=== PATIENT | male | born 1940 | race Caucasian/White ===

== ENCOUNTER 2017-03-18 07:30 | Observation (INO) | payer MEDICARE, MEDICAID ==
[~2017-03-18] VITALS: Ht 162.6 cm; Wt 72.6 kg
[~2017-03-18 07:30] MED LIST: HC A30CR RC; LIDO15CR6 TP; LISI-552 PO; MULT-1042 PO; THIA100T12 PO
[2017-03-18 07:50] LABS: BASOPHILS % (AUTO) 1 % (0-10); EOSINOPHILS % (AUTO) 1 % (0-10); LYMPHOCYTES # (AUTO) 0.5 X 10^3 (1.0-4.0); LYMPHOCYTES % (AUTO) 10 % (12-44); MEAN CORPUSCULAR HEMOGLOBIN 35 PG (25-34); MEAN CORPUSCULAR HGB CONC 34 G/DL (32-36); MEAN CORPUSCULAR VOLUME 101 FL (80-99); MEAN PLATELET VOLUME 9.1 FL (7.4-10.4); MONOCYTES # (AUTO) 0.6 X 10^3 (0.0-1.0); MONOCYTES % (AUTO) 13 % (0-12); NEUTROPHILS # (AUTO) 3.8 X 10^3 (1.8-7.8); NEUTROPHILS % (AUTO) 76 % (42-75); PLATELET COUNT 121 10^3/uL (130-400); RED BLOOD COUNT 3.76 10^6/uL (4.35-5.85); RED CELL DISTRIBUTION WIDTH 14.7 % (10.0-14.5)
[2017-03-18 08:10] LABS: ACETAMINOPHEN < 10 UG/ML (10-30); ALANINE AMINOTRANSFERASE 130 U/L (0-55); ALBUMIN 4.2 G/DL (3.2-4.5); ALCOHOL 45 MG/DL (<10); ANION GAP 26 MMOL/L (5-14); ASPARTATE AMINO TRANSFERASE 125 U/L (5-34); BILIRUBIN,TOTAL 1.4 MG/DL (0.1-1.0); BLOOD UREA NITROGEN 12 MG/DL (7-18); BUN/CREATININE RATIO 15; CALCIUM 8.3 MG/DL (8.5-10.1); CARBON DIOXIDE 11 MMOL/L (21-32); CHLORIDE 96 MMOL/L (98-107); CREATININE SERUM 0.81 MG/DL (0.60-1.30); GFR ESTIMATED > 60; GLUCOSE 73 MG/DL (70-105); POTASSIUM 3.9 MMOL/L (3.6-5.0); SODIUM 133 MMOL/L (135-145); TOTAL PROTEIN 6.9 G/DL (6.4-8.2)
--- NOTE | 2017-03-18 08:43 | ED General ---
General Chief Complaint: Dizziness/Syncope Stated Complaint: [facility] Nursing Triage Note: ARRIVED VIA EMS FROM [facility]. PT PASSED OUT AT [facility]. UNKNOWN IF HE HIT HIS HEAD. PT REPORTS NOT EATING FOR 3 DAYS EXCEPT DRINKING WHISKY AND WAS AT [facility] TO PURCHASE ETOH. BACK OF PT SHIRT SOAKED IN OLD BLOOD WITH BLOOD NOTICED ON HIS JEANS. SCATTERED BLOOD NOTICED ON HIS HEAD AND RIGHT EAR BUT NO ODVIOUS SIGNS OF BLEEDING HIMSELF. PT APPEARS TO HAVE SCABIES. Nursing Sepsis Screen: No Definite Risk Source of Information: Patient, EMS Notes Reviewed History of Present Illness Time Seen by Provider: 08:40 Initial Comments The patient is a 76-year-old white male who is a known alcoholic. He reported to the EMS that he had not eaten for the past 3 days but had been drinking whiskey. At About 0600 hours he gone to [facility] to buy more beer. He then was observed to be behaving oddly and ultimately slumped to the floor. He was observed to have blood upon his person but without obvious evidence of bleeding. The ambulance was summoned and he was brought here. On a recent visit here as an inpatient he was discovered to have scabies and bedbugs. Preliminary nursing scan today suggests this is still treated. Timing/Duration: 3-4 Days Allergies and Home Medications Allergies Coded Allergies: No Known Drug Allergies (Unverified , 09/05/16) Home Medications Lisinopril 20 Mg Tablet, 20 MG PO DAILY, #30 Prescribed by: HOPE RICHARDSON on 09/08/16 1324 Multivit-Min/Iron Fum/Folic AC 1 Each Tablet, 1 EACH PO DAILY for 30 Days Prescribed by: HOPE RICHARDSON on 09/08/16 1324 Thiamine HCl 100 Mg Tablet, 100 MG PO DAILY, #30 Prescribed by: HOPE RICHARDSON on 09/08/16 1324 Constitutional: see HPI EENTM: no symptoms reported Respiratory: no symptoms reported Cardiovascular: no symptoms reported Gastrointestinal: no symptoms reported Genitourinary: no symptoms reported Musculoskeletal: no symptoms reported Skin: no symptoms reported Psychiatric/Neurological: No Symptoms Reported Hematologic/Lymphatic: No Symptoms Reported Immunological/Allergic: no symptoms reported Past Blcfqpg-Ljzudf-Hqawon Hx Patient Social History Alcohol Use: Regular Use Recreational Drug Use: No Smoking Status: Current Everyday Smoker Type Used: Cigarettes Recent Foreign Travel: No Contact w/Someone Who Travel: No Recent Infectious Disease Expo: No Recent Hopitalizations: No Immunizations Up To Date Tetanus Booster (TDap): Unknown Seasonal Allergies Seasonal Allergies: No Surgeries HX Surgeries: Yes Respiratory Hx Respiratory Disorders: No Cardiovascular Hx Cardiac Disorders: Yes Cardiac Disorders: Hypertension Neurological Hx Neurological Disorders: No Reproductive System Hx Reproductive Disorders: No Genitourinary Hx Genitourinary Disorders: No Gastrointestinal Hx Gastrointestinal Disorders: Yes Gastrointestinal Disorders: Gastroesophageal Reflux, Hemorrhoids Musculoskeletal Hx Musculoskeletal Disorders: No Endocrine Hx Endocrine Disorders: No HEENT HX ENT Disorders: No Cancer Hx Cancer: No Psychosocial Hx Psychiatric Problems: No Integumentary HX Skin/Integumentary Disorder: Yes (current scabies/bed bugs ) Blood Transfusions Hx Blood Disorders: No Family Medical History Significant Family History: No Pertinent Family Hx Family Medial History: Patient reports no known family medical history. Physical Exam Vital Signs Vital Sign - Last 12Hours 03/18/17 03/18/17 07:30 07:40 Temp 98.0 Pulse 69 Resp 16 B/P (MAP) 168/92 Pulse Ox 94 O2 Delivery Nasal Cannula O2 Flow Rate 2.00 Capillary Refill : Less Than 3 Seconds General Appearance: No Apparent Distress Eyes: Bilateral Eye Normal Inspection HEENT: Normal ENT Inspection, Other (there is old blood caked at the external os of the right ear and the earlobe) Neck: Full Range of Motion, Normal Inspection, Non Tender, Supple, Carotid Bruit Respiratory: Chest Non Tender, Lungs Clear, Normal Breath Sounds, No Accessory Muscle Use, No Respiratory Distress Cardiovascular: Regular Rate, Rhythm, No Edema, No Gallop, No JVD, No Murmur, Normal Peripheral Pulses Gastrointestinal: Normal Bowel Sounds, No Organomegaly, No Pulsatile Mass, Non Tender, Soft Back: Normal Inspection Extremity: Normal Capillary Refill, Normal Inspection, Normal Range of Motion, Non Tender, No Calf Tenderness, No Pedal Edema Neurologic/Psychiatric: Alert, Oriented x3, No Motor/Sensory Deficits, Normal Mood/Affect Skin: Normal Color Comments Small flecks of blood clot are noted on the scalp, the right earlobe and external ear, scattered across the back, and the seat of the underwear appears soaked. This is old and dry. There is no evidence of hemorrhoid or rectal bleeding Progress/Results/Core Measures Results/Orders Lab Results Laboratory Tests Test 03/18/17 07:44 03/18/17 08:46 03/18/17 10:29 Range/Units White Blood Count 5.0 4.3-11.0 10^3/uL Red Blood Count 3.76 L 4.35-5.85 10^6/uL Hemoglobin 13.0 L 13.3-17.7 G/DL Hematocrit 38 L 40-54 % Mean Corpuscular Volume 101 H 80-99 FL Mean Corpuscular Hemoglobin 35 H 25-34 PG Mean Corpuscular Hemoglobin Concent 34 32-36 G/DL Red Cell Distribution Width 14.7 H 10.0-14.5 % Platelet Count 121 L 130-400 10^3/uL Mean Platelet Volume 9.1 7.4-10.4 FL Neutrophils (%) (Auto) 76 H 42-75 % Lymphocytes (%) (Auto) 10 L 12-44 % Monocytes (%) (Auto) 13 H 0-12 % Eosinophils (%) (Auto) 1 0-10 % Basophils (%) (Auto) 1 0-10 % Neutrophils # (Auto) 3.8 1.8-7.8 X 10^3 Lymphocytes # (Auto) 0.5 L 1.0-4.0 X 10^3 Monocytes # (Auto) 0.6 0.0-1.0 X 10^3 Eosinophils # (Auto) 0.0 0.0-0.3 10^3/uL Basophils # (Auto) 0.0 0.0-0.1 10^3/uL Prothrombin Time 15.0 H 12.2-14.7 SEC INR Comment 1.2 0.8-1.4 Sodium Level 133 L 135-145 MMOL/L Potassium Level 3.9 3.6-5.0 MMOL/L Chloride Level 96 L 98-107 MMOL/L Carbon Dioxide Level 11 L 21-32 MMOL/L Anion Gap 26 H 5-14 MMOL/L Blood Urea Nitrogen 12 7-18 MG/DL Creatinine 0.81 0.60-1.30 MG/DL Estimat Glomerular Filtration Rate > 60 BUN/Creatinine Ratio 15 Glucose Level 73 70-105 MG/DL Calcium Level 8.3 L 8.5-10.1 MG/DL Total Bilirubin 1.4 H 0.1-1.0 MG/DL Aspartate Amino Transf (AST/SGOT) 125 H 5-34 U/L Alanine Aminotransferase (ALT/SGPT) 130 H 0-55 U/L Alkaline Phosphatase 69 40-136 U/L Total Protein 6.9 6.4-8.2 G/DL Albumin 4.2 3.2-4.5 G/DL Acetaminophen Level < 10 L 10-30 UG/ML Serum Alcohol 45 H <10 MG/DL Urine Opiates Screen NEGATIVE NEGATIVE Urine Oxycodone Screen NEGATIVE NEGATIVE Urine Methadone Screen NEGATIVE NEGATIVE Urine Propoxyphene Screen NEGATIVE NEGATIVE Urine Barbiturates Screen NEGATIVE NEGATIVE Ur Tricyclic Antidepressants Screen NEGATIVE NEGATIVE Urine Phencyclidine Screen NEGATIVE NEGATIVE Urine Amphetamines Screen NEGATIVE NEGATIVE Urine Methamphetamines Screen NEGATIVE NEGATIVE Urine Benzodiazepines Screen NEGATIVE NEGATIVE Urine Cocaine Screen NEGATIVE NEGATIVE Urine Cannabinoids Screen NEGATIVE NEGATIVE Ammonia 31 11-32 UMOL/L My Orders Orders - BINU SWEET MD Acetaminophen (03/18/17 07:31) Alcohol (03/18/17 07:31) Cbc With Automated Diff (03/18/17 07:31) Comprehensive Metabolic Panel (03/18/17 07:31) Drug Screen Stat (Urine) (03/18/17 07:31) Ekg Tracing (03/18/17 08:04) Ammonia (03/18/17 09:46) Protime With Inr (03/18/17 09:46) General/Regular (03/18/17 Breakfast) Vital Signs/I&O Vital Sign - Last 12Hours 03/18/17 03/18/17 07:30 07:40 Temp 98.0 Pulse 69 Resp 16 B/P (MAP) 168/92 Pulse Ox 94 89 O2 Delivery Nasal Cannula O2 Flow Rate 2.00 Blood Pressure Mean: 117 Departure Communication Progress Notes Hemoglobin is noted to be 13. This is in the same range as his previous encounters. Pro time/INR is 1.2. Impression Impression: Primary Impression: alcohol abuse Additional Impression: fall at [facility] Disposition: 01 HOME, SELF-CARE Condition: Stable/Unchanged Departure-Patient Inst. Decision time for Depature: 11:18 Referrals: ROLANDO ORELLANA DO (PCP/Family) Primary Care Physician Patient Instructions: Syncope (Fainting) (DC) Add. Discharge Instructions: All discharge instructions reviewed with patient and/or family. Voiced understanding. See Dr. Orellana next week. Rest and avoid alcohol intake BINU SWEET MD March 18, 2017 08:43
[2017-03-18 10:01] LABS: INR 1.2 (0.8-1.4)
[2017-03-18 15:00] VITALS: BP 168/69
[2017-03-18] MEDS ORDERED: THIAMINE 100 MG/ML 2 ML (VITAMIN B-1) VIAL IV NR (15:00)
[2017-03-18] MEDS ORDERED: ONDANSETRON 4 MG/2 ML (SDV) Z0FRAN IV PRN (15:00)
[2017-03-18] MEDS ORDERED: CATHETER FLUSH 10 ML SYR IV PRN (15:00)
[2017-03-18] MEDS ORDERED: LORazepam INJ 2 MG/ML (ATIVAN) VIAL IV PRN (15:00)
[2017-03-18] MEDS ORDERED: FOLIC ACID 5MG/ML 10 ML IV NR (15:00)
[2017-03-18] MEDS ORDERED: RT-ALBUTEROL/IPRATROPIUM 3 ML (DUONEB) VIAL INH PRN (15:30)
[2017-03-18] MEDS ORDERED: IBUPROFEN TABLET 200 MG TAB PO PRN (19:30)
[2017-03-18 19:48] VITALS: BP 152/79
[2017-03-18] MEDS: LORazepam 1 MG (ATIVAN) TAB PO SCH (19:53)
[2017-03-18] MEDS: CATHETER FLUSH 10 ML SYR IV SCH (19:54)
[2017-03-19] VITALS: BP 149/79
[2017-03-19 03:49] VITALS: BP 157/87
[2017-03-19 05:27] LABS: BASOPHILS % (AUTO) 0 % (0-10); EOSINOPHILS % (AUTO) 1 % (0-10); LYMPHOCYTES # (AUTO) 0.3 X 10^3 (1.0-4.0); LYMPHOCYTES % (AUTO) 6 % (12-44); MEAN CORPUSCULAR HEMOGLOBIN 35 PG (25-34); MEAN CORPUSCULAR HGB CONC 35 G/DL (32-36); MEAN CORPUSCULAR VOLUME 99 FL (80-99); MEAN PLATELET VOLUME 9.3 FL (7.4-10.4); MONOCYTES % (AUTO) 19 % (0-12); NEUTROPHILS # (AUTO) 3.9 X 10^3 (1.8-7.8); NEUTROPHILS % (AUTO) 74 % (42-75); PLATELET COUNT 110 10^3/uL (130-400); RED BLOOD COUNT 3.62 10^6/uL (4.35-5.85); RED CELL DISTRIBUTION WIDTH 14.9 % (10.0-14.5); WHITE BLOOD COUNT 5.2 10^3/uL (4.3-11.0)
[2017-03-19 06:01] LABS: ANISOCYTOSIS SLIGHT; BAND NEUTROPHILS 0 %; BASOPHILS % (MANUAL) 0 %; EOSINOPHILS % (MANUAL) 0 %; LYMPHOCYTES % (MANUAL) 8 %; NEUTROPHILS % (MANUAL) 81 %; ROULEAUX SLIGHT
[2017-03-19] MEDS: CATHETER FLUSH 10 ML SYR IV SCH (06:22)
[2017-03-19 08:00] VITALS: BP 129/76
[2017-03-19] MEDS: LORazepam 1 MG (ATIVAN) TAB PO SCH ×2 (10:04→13:30)
--- NOTE | 2017-03-19 10:22 | Short Stay Summary ---
History of Present Illness History of Present Illness Reason for visit/HPI 76 yo M admitted for acute alcoholism. patient fell at [facility] in [facility]. He was there to purchase more alcohol. Patient has frequent visits to the hospital usually due to alcohol intoxication patient reports he hasn't a 3 days and typically just consumes alcohol. Patient was unstable on his feet on admission but as his alcohol levels (45 on admission) decreased he became more stable on his feet. He was able to ambulate without any assistance as well as use the restroom. Pt ate his meals that he ordered. Date of Admission March 18, 2017 at 13:28 Date of Discharge Mar 19 2017 Attending Physician Tyrone Bernal DO Admitting Physician Nate Hutchinson MD Consult Allergies and Home Medications Allergies Coded Allergies: No Known Drug Allergies (Unverified , 09/05/16) Home Medications Lisinopril 20 Mg Tablet, 20 MG PO DAILY, #30 Prescribed by: HOPE RICHARDSON on 09/08/16 1324 Multivit-Min/Iron Fum/Folic AC 1 Each Tablet, 1 EACH PO DAILY for 30 Days Prescribed by: HOPE RICHARDSON on 09/08/16 1324 Thiamine HCl 100 Mg Tablet, 100 MG PO DAILY, #30 Prescribed by: HOPE RICHARDSON on 09/08/16 1324 Past Ggsicln-Cnycjb-Fkpyhe Hx Patient Social History Alcohol Use: Regular Use Recreational Drug Use: No Smoking Status: Current Everyday Smoker Type Used: Cigarettes Physical Abuse Screen: No Sexual Abuse: No Recent Foreign Travel: No Contact w/other who traveled: No Recent Hopitalizations: Yes Recent Infectious Disease Expo: No Immunizations Up To Date Tetanus Booster (TDap): Unknown Seasonal Allergies Seasonal Allergies: No Surgeries HX Surgeries: Yes Respiratory Hx Respiratory Disorders: No Cardiovascular Hx Cardiovascular Disorders: Yes Cardiac Disorders: Hypertension Neurological Hx Neurological Disorders: No Reproductive System Hx Reproductive Disorders: No Genitourinary Hx Genitourinary Disorders: No Gastrointestinal Hx Gastrointestinal Disorders: Yes Gastrointestinal Disorders: Gastroesophageal Reflux, Hemorrhoids Musculoskeletal Hx Musculoskeletal Disorders: No Endocrine Hx Endocrine Disorders: No HEENT HX ENT Disorders: No Cancer Hx Cancer: No Psychosocial Hx Psychiatric Problems: No Integumentary HX Skin/Integumentary Disorder: Yes (current scabies/bed bugs ) Blood Transfusions Hx Blood Disorders: No Family Medical History Significant Family History: No Pertinent Family Hx Family Hx: Patient reports no known family medical history. Constitutional: No chills, No diaphoresis EENTM: No blurred vision, No double vision, No ear pain Respiratory: No cough, No dyspnea on exertion Cardiovascular: No chest pain Gastrointestinal: No abdominal pain, No constipation, No diarrhea Genitourinary: No dysuria, No frequency Musculoskeletal: No back pain, No joint pain Skin: pruritus, rash Psychiatric/Neurological: Denies Anxiety, Denies Depressed, Denies Headache, Weakness Physical Exam Vital Signs Vital Sign - Last 12Hours 03/18/17 03/18/17 07:30 07:40 Temp 98.0 Pulse 69 Resp 16 B/P (MAP) 168/92 Pulse Ox 94 O2 Delivery Nasal Cannula O2 Flow Rate 2.00 Capillary Refill : Less Than 3 Seconds General Appearance: No Apparent Distress, Thin HEENT: PERRL/EOMI, Other (bilateral black eyes) Neck: Full Range of Motion Respiratory: Chest Non Tender, Lungs Clear, Normal Breath Sounds, No Accessory Muscle Use, No Respiratory Distress Cardiovascular: Regular Rate, Rhythm, No Edema Gastrointestinal: Normal Bowel Sounds, Non Tender, Soft Rectal: Deferred Back: Normal Inspection, No CVA Tenderness Extremity: Non Tender, No Calf Tenderness Neurologic/Psychiatric: Alert, Oriented x3, No Motor/Sensory Deficits Skin: Other (excoriations on buttocks, legs) Clinical Quality Measures DVT/VTE Risk/Contraindication: Risk Factor Score Per Nursin RFS Level Per Nursing on Admit: 3=High Short Stay Diagnosis Discharge Diagnosis-Short Stay Admission Diagnosis: acute alcohol intoxication weakness fall secondary to etoh intoxication elevated liver enzymes Final Discharge Diagnosis: acute alcohol intoxication alcohol abuse weakness fall secondary to etoh intoxication elevated liver enzymes Conclusion Labs Laboratory Tests 03/18/17 10:29: Ammonia 31 03/19/17 05:09: White Blood Count 5.2, Red Blood Count 3.62L, Hemoglobin 12.6L, Hematocrit 36L, Mean Corpuscular Volume 99, Mean Corpuscular Hemoglobin 35H, Mean Corpuscular Hemoglobin Concent 35, Red Cell Distribution Width 14.9H, Platelet Count 110L, Mean Platelet Volume 9.3, Neutrophils (%) (Auto) 74, Lymphocytes (%) (Auto) 6L, Monocytes (%) (Auto) 19H, Eosinophils (%) (Auto) 1, Basophils (%) (Auto) 0, Neutrophils # (Auto) 3.9, Lymphocytes # (Auto) 0.3L, Monocytes # (Auto) 1.0, Eosinophils # (Auto) 0.0, Basophils # (Auto) 0.0, Neutrophils % (Manual) 81, Lymphocytes % (Manual) 8, Monocytes % (Manual) 11, Eosinophils % (Manual) 0, Basophils % (Manual) 0, Band Neutrophils 0, Anisocytosis SLIGHT, Rouleau SLIGHT Conclusion/Plan 76-year-old male admitted for overnight observation status post fall on March 18, 2017 at [facility]. No noticed injuries, physical exam is benign, besides blood all over his hands and buttocks and being unkempt. After patient was cleaned up there were excoriations noted on his buttocks no active bleeding noted. patient did have a temperature of 100.2 Fahrenheit he was given a one- time dose of Ativan on day of admission with good results. No noticed withdrawal symptoms. Patient denies any history of delirium tremens. Patient denies any seizures. patient refused to be discharged to home because he says he is too weak to go home. He wants one more day in the hospital to regain his strength. Patient was informed the hospital is not a place to regain his strength that he needs to get up and walk around at home. patient then proceeded to say he does not have any food at home and he does not have enough money to buy food. Hospital staff notes the patient did have money as well as had a vision card. Encouraged patient to sober up and stop drinking alcohol. Patient's brother was very cooperative and came up and picked patient up from the hospital and took him home. Patient will have an office visit with Dr. Bernal his PCP on March 21, 2017 to further discuss possible placement in a nursing facility. NATE HUTCHINSON MD March 19, 2017 10:21
--- NOTE | 2017-03-19 10:27 | Discharge Inst-Simple/Standard ---
Discharge Inst-Standard Patient Instructions/Follow Up Plan of Care/Instructions/FU: Patient needs to eat 3 meals a day stop his alcohol use Follow up with Dr. Bernal Cris 03/21/17 Activity as Tolerated: Yes Discharge Diet: Regular Diet Return to The Hospital For: new concerns ANDREA HUTCHINSON MD March 19, 2017 10:27
[2017-03-19 12:00] VITALS: BP 158/98
== END 2017-03-19 10:25 | disposition home or self-care (01) ==
LOC: EDUNIT# 07:30 → ER 07:31 → UNDOADMOB 13:28 → 4TH 13:28 → UNDODISOB 03-19 14:00
PROVIDERS: ADMIT Family Medicine; ATTEND Family Medicine
DX: F10.220 Alcohol dependence with intoxication, uncomplicated (principal); R53.1 Weakness; R74.8 Abnormal levels of other serum enzymes; I10 Essential (primary) hypertension; K21.9 Gastro-esophageal reflux disease without esophagitis; W19.XXXA Unspecified fall, initial encounter; Y92.512 Supermarket, store or market as the place of occurrence of the external cause
CPT/HCPCS: 36415; 80053; 80306; 80320; 80329; 82140; 85007; 85025; 85027; 85610; 93005; 94760; G0378

== ENCOUNTER 2018-02-23 19:19 | Inpatient (IN) | payer MEDICARE, MEDICAID ==
[~2018-02-23] VITALS: Ht 170.2 cm; Wt 71.7 kg
[2018-02-23] VITALS (9 sets, daily range): BP systolic 136–165; BP diastolic 76–86
--- NOTE | 2018-02-23 19:26 | ED General ---
General Stated Complaint: FALL Source of Information: Patient Exam Limitations: No Limitations History of Present Illness Date Seen by Provider: February 23, 2018 Time Seen by Provider: 19:23 Initial Comments To ER per EMS from home at [facility] where he lives by himself. He was formerly admitted to [facility] as he was unable to take care of himself and he is an alcoholic, but ultimately was his own guardian and left on his own accord. He's been falling more than usual lately and fell earlier today. EMS arrived on scene earlier today, helped him up and he refused transport. He then fell again this evening and one of the next-door neighbor's in his apartment complex called EMS to help get him up off the floor. He was then transported to ER per his brother's request who reportedly has guardianship of him. Brother has been talking to the operations administrator at [facility] and apparently [facility] has agreed to take him back possibly Monday. Patient states he drinks "a lot" every day which he defines as two tall boys of beer daily mixed with about a half pint of whiskey daily. Timing/Duration: 1-2 Days, Getting Worse, Intermittent Severity: Moderate Associated Systoms: Weakness Allergies and Home Medications Allergies Coded Allergies: No Known Drug Allergies (Unverified , 09/05/16) Home Medications No Active Prescriptions or Reported Meds Patient Home Medication List Home Medication List Reviewed: Yes Review of Systems Constitutional: see HPI EENTM: see HPI Respiratory: no symptoms reported Cardiovascular: no symptoms reported Genitourinary: no symptoms reported Musculoskeletal: see HPI, muscle weakness Skin: no symptoms reported Psychiatric/Neurological: No Symptoms Reported Hematologic/Lymphatic: No Symptoms Reported Immunological/Allergic: no symptoms reported Past Lkgymxg-Gucqpv-Vheiip Hx Patient Social History Alcohol Beverage of Choice: Beer, Whiskey Type Used: Cigarettes Recent Hopitalizations: No Immunizations Up To Date Tetanus Booster (TDap): Unknown Seasonal Allergies Seasonal Allergies: No Past Medical History Surgeries: Yes (PT UNABLE TO IDENTIFY ) Respiratory: No Cardiac: Yes Hypertension Neurological: No Reproductive Disorders: No Genitourinary: No Gastrointestinal: Yes Gastroesophageal Reflux, Hemorrhoids Musculoskeletal: No Endocrine: No HEENT: No Cancer: No Psychosocial: No Integumentary: Yes (scabies ) Blood Disorders: No Family Medical History Patient reports no known family medical history. No Pertinent Family Hx Physical Exam Vital Signs Vital Signs - First Documented 02/23/18 19:20 Temp 97.2 Pulse 69 Resp 18 B/P (MAP) 137/84 (101) Pulse Ox 95 O2 Delivery Room Air Capillary Refill : General Appearance: No Apparent Distress, WD/WN, Chronically ill, Other (He is alert, oriented to person and place. He is pleasant at this time, but anxious) Eyes: Bilateral Eye Normal Inspection, Bilateral Eye PERRL HEENT: PERRL/EOMI, TMs Normal Neck: Full Range of Motion, Normal Inspection Respiratory: No Accessory Muscle Use, No Respiratory Distress Cardiovascular: Regular Rate, Rhythm, Normal Peripheral Pulses Gastrointestinal: Normal Bowel Sounds, Non Tender, Soft Extremity: Normal Capillary Refill, Normal Inspection Neurologic/Psychiatric: Alert, No Motor/Sensory Deficits Skin: Normal Color, Warm/Dry Progress/Results/Core Measures Suspected Sepsis SIRS Temperature: Pulse: Respiratory Rate: Laboratory Tests 02/23/18 19:20: White Blood Count 3.9L Blood Pressure / Mean: Laboratory Tests 02/23/18 19:20: Creatinine 0.73, INR Comment 1.0, Platelet Count 96L, Total Bilirubin 1.3H Results/Orders Lab Results Laboratory Tests Test 02/23/18 19:20 Range/Units White Blood Count 3.9 L 4.3-11.0 10^3/uL Red Blood Count 3.79 L 4.35-5.85 10^6/uL Hemoglobin 14.0 13.3-17.7 G/DL Hematocrit 39 L 40-54 % Mean Corpuscular Volume 102 H 80-99 FL Mean Corpuscular Hemoglobin 37 H 25-34 PG Mean Corpuscular Hemoglobin Concent 36 32-36 G/DL Red Cell Distribution Width 14.6 H 10.0-14.5 % Platelet Count 96 L 130-400 10^3/uL Mean Platelet Volume 9.0 7.4-10.4 FL Neutrophils (%) (Auto) 58 42-75 % Lymphocytes (%) (Auto) 20 12-44 % Monocytes (%) (Auto) 17 H 0-12 % Eosinophils (%) (Auto) 4 0-10 % Basophils (%) (Auto) 1 0-10 % Neutrophils # (Auto) 2.3 1.8-7.8 X 10^3 Lymphocytes # (Auto) 0.8 L 1.0-4.0 X 10^3 Monocytes # (Auto) 0.7 0.0-1.0 X 10^3 Eosinophils # (Auto) 0.2 0.0-0.3 10^3/uL Basophils # (Auto) 0.0 0.0-0.1 10^3/uL Prothrombin Time 13.7 12.2-14.7 SEC INR Comment 1.0 0.8-1.4 Activated Partial Thromboplast Time 29 24-35 SEC Sodium Level 137 135-145 MMOL/L Potassium Level 3.7 3.6-5.0 MMOL/L Chloride Level 97 L 98-107 MMOL/L Carbon Dioxide Level 19 L 21-32 MMOL/L Anion Gap 21 H 5-14 MMOL/L Blood Urea Nitrogen 9 7-18 MG/DL Creatinine 0.73 0.60-1.30 MG/DL Estimat Glomerular Filtration Rate > 60 BUN/Creatinine Ratio 12 Glucose Level 91 70-105 MG/DL Calcium Level 8.7 8.5-10.1 MG/DL Total Bilirubin 1.3 H 0.1-1.0 MG/DL Aspartate Amino Transf (AST/SGOT) 92 H 5-34 U/L Alanine Aminotransferase (ALT/SGPT) 65 H 0-55 U/L Alkaline Phosphatase 69 40-136 U/L Total Protein 7.2 6.4-8.2 GM/DL Albumin 4.5 3.2-4.5 GM/DL Salicylates Level < 5.0 L 5.0-20.0 MG/DL Serum Alcohol 281 H <10 MG/DL My Orders Orders - YSABEL PAULINO APRN Cbc With Automated Diff (02/23/18 19:21) Comprehensive Metabolic Panel (02/23/18 19:21) Alcohol (02/23/18 19:21) Salicylate (02/23/18 19:21) Ekg Tracing (02/23/18 19:21) Chest 1 View, Ap/Pa Only (02/23/18 19:21) Ct Head/Cervical Spine Wo (02/23/18 19:21) Eu-Shhzajg-Uyqabi (Order) (02/23/18 19:21) Ua Culture If Indicated (02/23/18 19:29) Protime With Inr (02/23/18 19:33) Partial Thromboplastin Time (02/23/18 19:33) General/Regular (02/23/18 Dinner) Vital Signs/I&O 02/23/18 19:20 Temp 97.2 Pulse 69 Resp 18 B/P (MAP) 137/84 (101) Pulse Ox 95 O2 Delivery Room Air Capillary Refill : Diagnostic Imaging Diagonstic Imaging: CT Comments NAME: LARRY SANON [facility] REC#: [id number] PT STATUS: REG ER : 1940 PHYSICIAN: YSABEL PAULINO APRN ADMIT DATE: 02/23/18/ER Draft Date of Exam:02/23/18 CT HEAD/CERVICAL SPINE WO PROCEDURE: CT head and CT cervical spine without contrast. TECHNIQUE: Multiple contiguous axial images were obtained through the brain and cervical spine without the use of intravenous contrast. Sagittal and coronal reformations through the cervical spine were then performed. INDICATION: Fall. COMPARISON: 03/30/2017. CT HEAD: No intracranial hemorrhage, hydrocephalus, edema, mass, mass effect or interval change is found. No calvarial fracture or deformity. No evidence for elevated intracranial pressures. No hemo-sinus. CT CERVICAL SPINE: Degenerative changes involve discs, endplates, uncovertebral joints and facets throughout the cervical spine on a chronic degenerative basis, stable from prior. No high-grade canal stenosis. Vertebral statures are within normal limits. No fracture or paravertebral hematoma. Left greater than right carotid atherosclerotic vascular calcifications, chronic. Visualized pulmonary apices nonacute. IMPRESSION: 1. CT head: Stable head CT with no hemorrhage, fracture, deformity or acute pathology. 2. CT cervical spine: Chronic stable degenerative and atherosclerotic changes with no fracture or traumatic malalignment. Dictated on workstation # [id number] Dict: 02/23/182010 Trans: 02/23/182019 [facility] [id number] Interpreted by: DOTTIE CHUNG Electronically signed by: NAME: LARRY SANON REC#: [id number] PT STATUS: REG ER : 1940 PHYSICIAN: YSABEL PAULINO APRN ADMIT DATE: 02/23/18/ER Draft Date of Exam:02/23/18 CHEST 1 VIEW, AP/PA ONLY INDICATION: Fall. EXAMINATION: Single view of the chest was obtained. FINDINGS: The lungs are clear. The heart and vessels are normal. No effusion or pneumothorax. Calcified left lower lung nodule stable from exam of 09/05/2016, presumed granuloma. No new nodule. No failure, effusion or pneumothorax. Chronic air trapping stable. There are chronic degenerative changes involving right greater than left shoulders. IMPRESSION: Stable chronic findings. Dictated on workstation # [id number] Dict: 02/23/182012 Trans: 02/23/182021 [facility] [id number] Interpreted by: DOTTIE CHUNG Electronically signed by: Departure Communication (Admissions) Time/Spoke to Admitting Phy: 20:[address] Valdivia on-call for [facility] hospitalist. Patient is very anxious, unable to take care of himself at home. He's been falling multiple times daily over the past few days and with the anxiety is in early alcohol withdrawal. Impression Primary Impression: Alcohol withdrawal Additional Impressions: Frequent falls Generalized weakness Physical deconditioning Disposition: ADMITTED INPATIENT Condition: Stable Admissions Decision to Admit Reason: Admit from ER (General) Decision to Admit/Date: February 23, 2018 Time/Decision to Admit Time: 20:43 Departure-Patient Inst. Referrals: ROLANDO ORELLANA DO (PCP/Family) Primary Care Physician Scripts No Active Prescriptions or Reported Meds YSABEL PAULINO APRN February 23, 2018 19:26
[2018-02-23 19:29] LABS: BASOPHILS % (AUTO) 1 % (0-10); EOSINOPHILS # (AUTO) 0.2 10^3/uL (0.0-0.3); EOSINOPHILS % (AUTO) 4 % (0-10); HEMATOCRIT 39 % (40-54); LYMPHOCYTES # (AUTO) 0.8 X 10^3 (1.0-4.0); LYMPHOCYTES % (AUTO) 20 % (12-44); MEAN CORPUSCULAR HEMOGLOBIN 37 PG (25-34); MEAN CORPUSCULAR HGB CONC 36 G/DL (32-36); MEAN CORPUSCULAR VOLUME 102 FL (80-99); MONOCYTES # (AUTO) 0.7 X 10^3 (0.0-1.0); MONOCYTES % (AUTO) 17 % (0-12); NEUTROPHILS # (AUTO) 2.3 X 10^3 (1.8-7.8); NEUTROPHILS % (AUTO) 58 % (42-75); PLATELET COUNT 96 10^3/uL (130-400); RED BLOOD COUNT 3.79 10^6/uL (4.35-5.85); RED CELL DISTRIBUTION WIDTH 14.6 % (10.0-14.5); WHITE BLOOD COUNT 3.9 10^3/uL (4.3-11.0)
[2018-02-23 19:42] LABS: PROTHROMBIN TIME PATIENT 13.7 SEC (12.2-14.7)
[2018-02-23 19:50] LABS: ALANINE AMINOTRANSFERASE 65 U/L (0-55); ALBUMIN 4.5 GM/DL (3.2-4.5); ALKALINE PHOSPHATASE 69 U/L (40-136); BILIRUBIN,TOTAL 1.3 MG/DL (0.1-1.0); BUN/CREATININE RATIO 12; CALCIUM 8.7 MG/DL (8.5-10.1); CARBON DIOXIDE 19 MMOL/L (21-32); CHLORIDE 97 MMOL/L (98-107); CREATININE SERUM 0.73 MG/DL (0.60-1.30); GFR ESTIMATED > 60; GLUCOSE 91 MG/DL (70-105); POTASSIUM 3.7 MMOL/L (3.6-5.0); SALICYLATE < 5.0 MG/DL (5.0-20.0); SODIUM 137 MMOL/L (135-145); TOTAL PROTEIN 7.2 GM/DL (6.4-8.2)
--- NOTE | 2018-02-23 20:21 | Diagnostic Imaging Report ---
PROCEDURE: CT head and CT cervical spine without contrast. TECHNIQUE: Multiple contiguous axial images were obtained through the brain and cervical spine without the use of intravenous contrast. Sagittal and coronal reformations through the cervical spine were then performed. INDICATION: Fall. COMPARISON: 03/30/2017. CT HEAD: No intracranial hemorrhage, hydrocephalus, edema, mass, mass effect or interval change is found. No calvarial fracture or deformity. No evidence for elevated intracranial pressures. No hemo-sinus. CT CERVICAL SPINE: Degenerative changes involve discs, endplates, uncovertebral joints and facets throughout the cervical spine on a chronic degenerative basis, stable from prior. No high-grade canal stenosis. Vertebral statures are within normal limits. No fracture or paravertebral hematoma. Left greater than right carotid atherosclerotic vascular calcifications, chronic. Visualized pulmonary apices nonacute. IMPRESSION: 1. CT head: Stable head CT with no hemorrhage, fracture, deformity or acute pathology. 2. CT cervical spine: Chronic stable degenerative and atherosclerotic changes with no fracture or traumatic malalignment. Dictated by: Dictated on workstation # [id number]
--- NOTE | 2018-02-23 20:22 | Diagnostic Imaging Report ---
INDICATION: Fall. EXAMINATION: Single view of the chest was obtained. FINDINGS: The lungs are clear. The heart and vessels are normal. No effusion or pneumothorax. Calcified left lower lung nodule stable from exam of 09/05/2016, presumed granuloma. No new nodule. No failure, effusion or pneumothorax. Chronic air trapping stable. There are chronic degenerative changes involving right greater than left shoulders. IMPRESSION: Stable chronic findings. Dictated by: Dictated on workstation # [id number]
[2018-02-23 20:48] LABS: BILIRUBIN,URINE NEGATIVE (NEGATIVE); CLARITY,URINE CLEAR; COLOR,URINE YELLOW; GLUCOSE, URINE (UA) NEGATIVE (NEGATIVE); KETONES,URINE 3+ (NEGATIVE); LEUKOCYTE ESTERASE ,URINE NEGATIVE (NEGATIVE); NITRITE,URINE NEGATIVE (NEGATIVE); PH,URINE 5 (5-9); PROTEIN,URINE 1+ (NEGATIVE); UROBILINOGEN,URINE NORMAL (NORMAL)
[2018-02-23 21:01] LABS: BACTERIA,URINE NEGATIVE /HPF; SQUAMOUS EPITHELIAL CELL,UR 0-2 /HPF
[2018-02-23] MEDS ORDERED: 1/2 NS IV SOLUTION 1,000 ML IV PRN (22:17)
[2018-02-23] MEDS ORDERED: ONDANSETRON 4 MG (ZOFRAN) ORAL DISSOLVE TAB SL PRN (22:30)
[2018-02-23] MEDS ORDERED: SENNA W/DOCUSATE (SENOKOT S) TABLET PO PRN (22:30)
[2018-02-23] MEDS ORDERED: D5 1/2 NS 1000 ML IV SOLUTION 1,000 ML IV PRN (22:30)
[2018-02-23] MEDS ORDERED: LORazepam INJ 2 MG/ML (ATIVAN) VIAL IM/IV PRN (22:30)
[2018-02-23] MEDS ORDERED: ONDANSETRON 4 MG/2 ML (SDV) Z0FRAN IV PRN (22:30)
[2018-02-23] MEDS ORDERED: ANTACID SUSP 30 ML UDC (MYLANTA) PO PRN (22:30)
[2018-02-23] MEDS: THIAMINE INJECTION 100 MG, FOLIC ACID INJECTION 1 MG, MAGNESIUM SULFATE 2 GM, VITAMIN M... IV SCH ×5 (23:09)
[2018-02-23] MEDS: D5 1/2 NS W/KCL 20 MEQ/L 1,000 ML IV SCH (23:09)
[2018-02-24 04:35] VITALS: BP 131/78
[2018-02-24] MEDS: D5 1/2 NS W/KCL 20 MEQ/L 1,000 ML IV SCH ×4 (06:17→23:27)
[2018-02-24 07:52] VITALS: BP 159/76
--- NOTE | 2018-02-24 08:02 | History & Physical-Hospitalist ---
History of Present Illness HPI/Chief Complaint CC: Alcohol Withdrawal HPI: This is a 77-year-old clinic patient of Dr. 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 He has no significant medical history and I can't obtain any details from the patient due to cognitive deficit baseline in addition to alcoholism with withdrawal delirium. I review a discharge summary from March 2017 and noted he was admitted for the same diagnoses and he went to the senior living at that time of which he will need to be placed in a senior living upon discharge this time also. Source: RN/MD Exam Limitations: clinical condition (deleirium) Date Seen 02/24/18 Time Seen by Provider: 07:30 Attending Physician Tyrone Bernal DO PCP Tyrone Bernal DO Referring Physician Date of Admission February 23, 2018 at 21:10 Home Medications & Allergies Home Medications Reviewed patient Home Medication Reconciliation performed by pharmacy medication reconciliations service technician copier and/or nursing. Patients Allergies have been reviewed. 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) Alcohol Use: Regular Use Number of Drinks Today: AA Alcohol Beverage of Choice: Beer, Whiskey Recreational Drug Use: No Smoking Status: Current Everyday Smoker Type Used: Cigarettes Physical Abuse Screen: No Sexual Abuse: No Recent Foreign Travel: No Contact w/other who traveled: No Recent Hopitalizations: No Recent Infectious Disease Expo: No Immunizations Up To Date Tetanus Booster (TDap): Unknown Seasonal Allergies Seasonal Allergies: No Past Medical History Cardiac: Hypertension Reproductive: No Sexually Transmitted Disease: No HIV/AIDS: No Gastrointestinal: Gastroesophageal Reflux, Hemorrhoids History of Blood Disorders: No Family History Patient reports no known family medical history. No Pertinent Family Hx Review of Systems ROS-Unable to Obtain: unable to ascertain due to cognitive deficit Constitutional: see HPI Physical Exam Physical Exam Vital Signs Vital Signs - First Documented 02/23/18 19:20 Temp 97.2 Pulse 69 Resp 18 B/P (MAP) 137/84 (101) Pulse Ox 95 O2 Delivery Room Air Capillary Refill : Less Than 3 Seconds General Appearance: No Apparent Distress, WD/WN, Chronically ill, Obese, Other (confused in bed) Eyes: Bilateral Eye Normal Inspection, Bilateral Eye PERRL HEENT: PERRL/EOMI, Normal ENT Inspection, Pharynx Normal Neck: Full Range of Motion, Normal Inspection, Non Tender, Supple, Carotid Bruit Respiratory: Chest Non Tender, Lungs Clear, Normal Breath Sounds, No Accessory Muscle Use, No Respiratory Distress Cardiovascular: Regular Rate, Rhythm, No Edema, No Gallop, No JVD, No Murmur, Normal Peripheral Pulses Gastrointestinal: Normal Bowel Sounds, No Organomegaly, No Pulsatile Mass, Non Tender, Soft Back: Normal Inspection, No CVA Tenderness, No Vertebral Tenderness Extremity: Normal Capillary Refill, Normal Inspection, Normal Range of Motion, Non Tender, No Calf Tenderness, No Pedal Edema Neurologic/Psychiatric: Alert, No Motor/Sensory Deficits, Depressed Affect, Disoriented Skin: Normal Color, Warm/Dry Lymphatic: No Adenopathy Results Results/Procedures Labs Laboratory Tests 02/23/18 19:20 Patient resulted labs reviewed. Assessment/Plan Admission Diagnosis Assessment: Alcohol withdrawal Delirium Elevated liver enzymes Unable to care for self at home will need senior living placement Plan: Maintain on detox protocol with tele-sitter Fall risk Monitor labs closely assisted placement on Monday Admission Status: Inpatient Order (span 2 midnights) Reason for Inpatient Admission: ETOH withdrawal in older adult at high risk for decompensation Diagnosis/Problems Diagnosis/Problems (1) Acute alcoholic intoxication with delirium Status: Acute (2) Liver enzyme elevation Status: Acute (3) Alcohol withdrawal Status: Acute (4) Alcohol abuse Status: Chronic (5) Generalized weakness Status: Chronic (6) Frequent falls Status: Acute (7) Thrombocytopenia Status: Chronic Clinical Quality Measures DVT/VTE Risk/Contraindication: Risk Factor Score Per Nursin RFS Level Per Nursing on Admit: 2=Moderate VI GUTIERREZ DO February 24, 2018 08:02
[2018-02-24] MEDS: THIAMINE INJECTION 100 MG, FOLIC ACID INJECTION 1 MG, MAGNESIUM SULFATE 2 GM, VITAMIN M... IV SCH ×10 (08:36→12:22)
[2018-02-24 12:03] VITALS: BP 146/72
[2018-02-24 16:00] VITALS: BP 155/83
[2018-02-24 20:00] VITALS: BP 162/83
[2018-02-25 00:25] VITALS: BP 139/83
[2018-02-25 04:00] VITALS: BP 152/87
[2018-02-25 07:02] LABS: BASOPHILS % (AUTO) 0 % (0-10); EOSINOPHILS % (AUTO) 0 % (0-10); HEMATOCRIT 37 % (40-54); HEMOGLOBIN 13.5 G/DL (13.3-17.7); LYMPHOCYTES # (AUTO) 0.3 X 10^3 (1.0-4.0); LYMPHOCYTES % (AUTO) 6 % (12-44); MEAN CORPUSCULAR HEMOGLOBIN 37 PG (25-34); MEAN CORPUSCULAR HGB CONC 36 G/DL (32-36); MEAN CORPUSCULAR VOLUME 103 FL (80-99); MEAN PLATELET VOLUME 9.7 FL (7.4-10.4); MONOCYTES # (AUTO) 0.6 X 10^3 (0.0-1.0); MONOCYTES % (AUTO) 12 % (0-12); NEUTROPHILS # (AUTO) 4.1 X 10^3 (1.8-7.8); NEUTROPHILS % (AUTO) 82 % (42-75); PLATELET COUNT 56 10^3/uL (130-400); RED BLOOD COUNT 3.64 10^6/uL (4.35-5.85); RED CELL DISTRIBUTION WIDTH 14.3 % (10.0-14.5); WHITE BLOOD COUNT 5.1 10^3/uL (4.3-11.0)
[2018-02-25 07:25] LABS: ALANINE AMINOTRANSFERASE 61 U/L (0-55); ALBUMIN 3.8 GM/DL (3.2-4.5); ALKALINE PHOSPHATASE 65 U/L (40-136); BILIRUBIN,TOTAL 1.6 MG/DL (0.1-1.0); BUN/CREATININE RATIO 6; CALCIUM 8.5 MG/DL (8.5-10.1); CARBON DIOXIDE 24 MMOL/L (21-32); CHLORIDE 99 MMOL/L (98-107); CREATININE SERUM 0.71 MG/DL (0.60-1.30); GFR ESTIMATED > 60; GLUCOSE 161 MG/DL (70-105); POTASSIUM 3.2 MMOL/L (3.6-5.0); SODIUM 134 MMOL/L (135-145); TOTAL PROTEIN 6.2 GM/DL (6.4-8.2)
[2018-02-25 07:45] VITALS: BP 129/80
[2018-02-25] MEDS: LORazepam 1 MG (ATIVAN) TAB PO PRN ×4 (08:35→17:40)
[2018-02-25 12:00] VITALS: BP 162/88
--- NOTE | 2018-02-25 12:04 | Progress Note-Hospitalist ---
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 He has no significant medical history and I can't obtain any details from the patient due to cognitive deficit baseline in addition to alcoholism with withdrawal delirium. I review a discharge summary from March 2017 and noted he was admitted for the same diagnoses and he went to the custodial at that time of which he will need to be placed in a custodial upon discharge this time also. Subjective/Events-last exam Patient doing about the same Confusion persist Had loose stools last night and today and now obsessed about pills that he was given for bowels which none ordered Needs custodial placement Prognosis extremely poor Will replace potassium We'll Hep-Lock IV fluids since he is eating and drinking well Review of Systems General: Malaise Neurological: Confusion Objective Exam Vital Signs Vital Signs Date Time Temp Pulse Resp B/P (MAP) Pulse Ox O2 Delivery O2 Flow Rate FiO2 02/25/18 07:45 97.7 78 22 129/80 (96) 93 Room Air Capillary Refill : Less Than 3 Seconds General Appearance: No Apparent Distress, WD/WN, Chronically ill Respiratory: Lungs Clear, Normal Breath Sounds Cardiovascular: Regular Rate, Rhythm, No Edema Neurologic/Psychiatric: Alert, No Motor/Sensory Deficits, Normal Mood/Affect, kettle worker II-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 Assessment/Plan Assessment and Plan Assess & Plan/Chief Complaint Assessment: Alcohol withdrawal Delirium Cognitive deficit Plan: Replace potassium [facility] placement Detox protocol Fall risk Diagnosis/Problems Diagnosis/Problems (1) Acute alcoholic intoxication with delirium Status: Acute (2) Liver enzyme elevation Status: Chronic (3) Alcohol withdrawal Status: Acute Qualifiers: Complication of substance-induced condition: with delirium Qualified Codes : F10.231 - Alcohol dependence with withdrawal delirium (4) Alcohol abuse Status: Chronic (5) Generalized weakness Status: Chronic (6) Frequent falls Status: Acute (7) Thrombocytopenia Status: Chronic Clinical Quality Measures DVT/VTE Risk/Contraindication: Risk Factor Score Per Nursin RFS Level Per Nursing on Admit: 2=Moderate VI GUTIERREZ DO February 25, 2018 12:04
[2018-02-25] MEDS: KCL 10 MEQ TAB (MICRO K) PO SCH ×4 (12:28→20:47)
[2018-02-25 16:00] VITALS: BP 177/97
[2018-02-25] MEDS: LORazepam INJ 2 MG/ML (ATIVAN) VIAL IV PRN ×2 (17:55→22:17)
[2018-02-25 20:00] VITALS: BP 165/93
[2018-02-26 00:07] VITALS: BP 157/95
[2018-02-26 04:14] VITALS: BP 141/81
[2018-02-26 06:36] LABS: BASOPHILS % (AUTO) 1 % (0-10); EOSINOPHILS # (AUTO) 0.2 10^3/uL (0.0-0.3); EOSINOPHILS % (AUTO) 3 % (0-10); HEMATOCRIT 40 % (40-54); HEMOGLOBIN 14.8 G/DL (13.3-17.7); LYMPHOCYTES # (AUTO) 0.5 X 10^3 (1.0-4.0); LYMPHOCYTES % (AUTO) 11 % (12-44); MEAN CORPUSCULAR HEMOGLOBIN 38 PG (25-34); MEAN CORPUSCULAR HGB CONC 37 G/DL (32-36); MEAN CORPUSCULAR VOLUME 101 FL (80-99); MEAN PLATELET VOLUME 9.8 FL (7.4-10.4); MONOCYTES # (AUTO) 0.7 X 10^3 (0.0-1.0); MONOCYTES % (AUTO) 14 % (0-12); NEUTROPHILS # (AUTO) 3.6 X 10^3 (1.8-7.8); NEUTROPHILS % (AUTO) 72 % (42-75); PLATELET COUNT 62 10^3/uL (130-400); RED BLOOD COUNT 3.92 10^6/uL (4.35-5.85)
[2018-02-26 07:02] LABS: ALANINE AMINOTRANSFERASE 107 U/L (0-55); ALKALINE PHOSPHATASE 65 U/L (40-136); BILIRUBIN,TOTAL 1.4 MG/DL (0.1-1.0); BUN/CREATININE RATIO 12; CALCIUM 9.1 MG/DL (8.5-10.1); CARBON DIOXIDE 26 MMOL/L (21-32); CHLORIDE 104 MMOL/L (98-107); CREATININE SERUM 0.66 MG/DL (0.60-1.30); GFR ESTIMATED > 60; GLUCOSE 93 MG/DL (70-105); POTASSIUM 3.4 MMOL/L (3.6-5.0); SODIUM 139 MMOL/L (135-145); TOTAL PROTEIN 6.9 GM/DL (6.4-8.2)
--- NOTE | 2018-02-26 07:55 | Progress Note (SOAP) ---
Subjective Time Seen by Provider: 07:55 Subjective/Events-last exam Patient resting comfortably this morning. Patient snoring. To get dialysis social worker involved. Patient known alcoholic and unable to take care of himself Objective Exam Vital Signs Date Time Temp Pulse Resp B/P (MAP) Pulse Ox O2 Delivery O2 Flow Rate FiO2 02/26/18 04:14 97.7 74 17 141/81 (101) 98 Room Air 02/26/18 01:27 80 02/26/18 00:07 97.9 80 17 157/95 (115) 94 Room Air 02/25/18 20:00 98.9 78 20 165/93 (117) 92 Room Air 02/25/18 19:00 80 02/25/18 16:00 98.7 86 20 177/97 (123) 93 Room Air 02/25/18 12:59 107 02/25/18 12:00 98.2 79 18 162/88 (112) 91 Room Air I & O 02/26/18 07:00 Intake Total 790 ml Output Total 675 ml Balance 115 ml Capillary Refill : Less Than 3 Seconds General Appearance: No Apparent Distress, WD/WN Results Lab Laboratory Tests 02/26/18 06:20 Laboratory Tests 02/26/18 06:20: White Blood Count 5.0, Red Blood Count 3.92L, Hemoglobin 14.8, Hematocrit 40, Mean Corpuscular Volume 101H, Mean Corpuscular Hemoglobin 38H, Mean Corpuscular Hemoglobin Concent 37H, Red Cell Distribution Width 14.0, Platelet Count 62L, Mean Platelet Volume 9.8, Neutrophils (%) (Auto) 72, Lymphocytes (%) (Auto) 11L , Monocytes (%) (Auto) 14H, Eosinophils (%) (Auto) 3, Basophils (%) (Auto) 1, Neutrophils # (Auto) 3.6, Lymphocytes # (Auto) 0.5L, Monocytes # (Auto) 0.7, Eosinophils # (Auto) 0.2, Basophils # (Auto) 0.0, Sodium Level 139, Potassium Level 3.4L, Chloride Level 104, Carbon Dioxide Level 26, Anion Gap 9, Blood Urea Nitrogen 8, Creatinine 0.66, Estimat Glomerular Filtration Rate > 60, BUN/ Creatinine Ratio 12, Glucose Level 93, Calcium Level 9.1, Total Bilirubin 1.4H, Aspartate Amino Transf (AST/SGOT) 147H, Alanine Aminotransferase (ALT/SGPT) 107H , Alkaline Phosphatase 65, Total Protein 6.9, Albumin 4.0 Microbiology 02/24/18 Lice/Scabies Examination - Final, Complete Assessment/Plan Assessment/Plan Assess & Plan/Chief Complaint [place] acute alcoholism. Alcoholic level 280 Alcoholic withdrawal. Patient unable to take care of himself at home. Thrombocytopenia Clinical Quality Measures DVT/VTE Risk/Contraindication: Risk Factor Score Per Nursin RFS Level Per Nursing on Admit: 2=Moderate ROLANDO ORELLANA DO February 26, 2018 07:55
[2018-02-26] MEDS ORDERED: KCL 10 MEQ TAB (MICRO K) PO NR (08:30)
[2018-02-26] MEDS: KCL 10 MEQ TAB (MICRO K) PO SCH ×4 (08:32→21:23)
[2018-02-26 09:38] VITALS: BP 166/96
--- NOTE | 2018-02-26 10:56 | Physical Therapy Evaluation ---
PT Evaluation-General Medical Diagnosis Admission Date February 23, 2018 at 21:10 Medical Diagnosis: ETOH withdrawal Onset Date: February 23, 2018 Therapy Diagnosis Therapy Diagnosis: generalized weakness/debility Height/Weight Height (Feet): 5 Height (Inches): 7.00 Weight (Pounds): 158 Weight (Ounces): 0.0 Precautions Precautions/Isolations: Fall Prevention, Standard Precautions, Pressure Ulcer Weight Bear Status Right Lower Extremity: Right Full Weight Bearing Left Lower Extremity: Left Full Weight Bearing Referral Physician: Skip Reason for Referral: Evaluation/Treatment Medical History Pertinent Medical History: Alcoholism, GERD, Smoking Additional Medical History has been in NH prior secondary to inability to care for self due to alcoholism Current History EMS secondary to multiple falls and inability to care for self due to alcoholism Social History Home: Apartment Current Living Status: Alone Prior/[facility] FIM Prior Level of Function Functional [place] Measure 0=Not Assessed/NA 4=Minimal Assistance 1=Total Assistance 5=Supervision or Setup 2=Maximal Assistance 6=Modified [place] 3=Moderate Assistance 7=Complete [place] Bed Mobility: 7 Transfers (B,C,W/C) (FIM): 7 Gait: 7 PT Evaluation-Current Subjective Patient is very lethargic and agrees to PT. Pain Numeric Pain Scale: 0-No Pain Location: No Pain Reported Objective Patient Orientation: Confused, Listless Problem Solving: Poor ROM/Strength ROM Lower Extremities bilateral LE WNL Strength Lower Extremities 3/5 grossly with patient unable to follow simple direction to test formally Integumentary/Posture Integumentary refer to nursing notes Bowel Incontinence: No Bladder Incontinence: No Posture WFL Neuromuscular (Tone, Coordination, Reflexes) diminished coordination Sensory Vision: Wears Glasses Hearing: Functional Sensation Right Lower Extremit: Intact Sensation Left Lower Extremity: Intact Transfers Functional [place] Measure 0=Not Assessed/NA 4=Minimal Assistance 1=Total Assistance 5=Supervision or Setup 2=Maximal Assistance 6=Modified [place] 3=Moderate Assistance 7=Complete [place] Transfers (B, C, W/C) (FIM): 4 Scootin Rollin Supine to/from Sit: 4 Sit to/from Stand: 4 Gait Mode of Locomotion: Walk Anticipated Mode of Locomotion: Walk Gait (FIM): 1 Distance (FIM): 1=up to 49 ft Distance: 3 steps Gait Level of Assist: 4 Comments/Gait Description unsteady due to lethargy from medication/detox Balance Sitting Static: Poor Sitting Dynamic: Poor Standing Static: Poor Standing Dynamic: Poor Assessment/Needs 77 y.o. male, will benefit from short term skilled PT to address functional strength and mobility. Patient is currently severely lethargic and unable to follow simple direction and unsafe to ambulate. Patient is up in recliner with chair alarm activated. Rehab Potential: Guarded Post Rehab Potential-Barriers: compliance PT Short Term Goals Short Term Goals Time Frame: March 02, 2018 Transfers (B,C,W/C) (FIM): 5 Gait (FIM): 2 Distance (FIM): 5=180-60 ft Gait Distance Comment: 100' Gait Level of Assist: 4 Gait Assistive Device: FWW PT Plan Problem List Problem List: Activity Tolerance, Functional Strength, Safety, Balance, Gait, Transfer, Bed Mobility Treatment/Plan Treatment Plan: Continue Plan of Care Treatment Plan: Bed Mobility, Education, Functional Activity Colin, Functional Strength, Gait, Safety, Therapeutic Exercise, Transfers Treatment Duration: March 02, 2018 Frequency: 5 times per week Estimated Hrs Per Day: .25 hour per day Patient and/or Family Agrees t: Yes Discharge Recommendations Therapy D/C Recommendations: [facility] Placement Time/GCodes Time In: 1020 Time Out: 1031 Total Billed Treatment Time: 11 Total Billed Treatment 1 visit EVLow 11 min G Codes Necessary: ELIZABETH Garcia PT February 26, 2018 10:55
[2018-02-26 12:00] VITALS: BP 150/93
--- NOTE | 2018-02-26 13:33 | Occupational Therapy Eval ---
OT Evaluation-General/PLF Medical Diagnosis Admission Date February 23, 2018 at 21:10 Medical Diagnosis: ETOH withdrawal Onset Date: February 23, 2018 Therapy Diagnosis Therapy Diagnosis: Weakness Height/Weight Height (Feet): 5 Height (Inches): 7.00 Weight (Pounds): 158 Weight (Ounces): 0.0 Precautions Precautions/Isolations: Fall Prevention, Standard Precautions, Pressure Ulcer Safety Interventions: Bed Exit Alarm, Reorient-PRN Weight Bear Status Weight Bearing Restriction: Weight Bearing/Tolerated Referral Physician: Skip Referral Reason: Activity Tolerance, Self Care, Evaluation/Treatment, Strengthening/ROM Medical History Pertinent Medical History: Alcoholism, GERD, Smoking Current History Pt. has sustained multiple falls recently. Withdrawing from ETOH. Reviewed History: Yes Social History Home: Apartment Current Living Status: Alone ADL-Prior Level of Function ADL PLOF Comments Pt. is poor historian. Unable to state what his previous level of function was. OT Current Status Subjective Pt. does not report pain. However, states that he would like to walk. Appearance Pt. in chair. Eyes open. Able to talk with OT. However, unable to state history. Pt. does state that he was already cleaned up today. Mental Status/Objective Patient Orientation: Confused ADL-Treatment Functional [place] Measure 0=Not Assessed/NA 4=Minimal Assistance 1=Total Assistance 5=Supervision or Setup 2=Maximal Assistance 6=Modified [place] 3=Moderate Assistance 7=Complete IndependenceIRFPAI Quality Coding Scale 6 Independent with activity with or without an assistive device 5 Patient requires set up or clean up by helper. Patient completes activity by themselves 4 Supervision or touching assist (CGA). [place] provide cues , steadying assist 3 The helper provides less than half the effort to complete the activity 2 The helper provides more than half the effort to complete the activity 1 Dependent. The helper does all the effort to complete an activity 7 Patient refused to complete or attempt activity 9 The patient did not perform the activity before the current illness or injury 88 Not attempted due to Medical conditions or safety concerns Lower Body Dressing (FIM): 1 (Dependent to change socks after urinating on self.) Toileting (FIM): 1 Transfers (B, C, W/C) (FIM): 4 Toilet/Commode Transfer (FIM): 4 Pt. states that he has already been cleaned up by nursing. States he would like to try and ambulate. OT applies gait belt and provided walker. Took 4 steps and then urinated on floor. Pt. states, "I had to go." Pt. transfers to BSC that is close. OT cleaned up floor but let nursing know to call for housekeeping. Ambulated back to chair with min assist. OT changed pt's gown and slipper socks for him, due to urinating on self. Chair alarm set and all needs met in room. Education OT Patient Education: Correct positioning, Modified ADL techniques, Progress toward Goal/Update tx plan, Purpose of tx/functional activities, Reviewed precautions, Rehab process, Transfer techniques Teaching Recipient: Patient Teaching Methods: Demonstration, Discussion Response to Teaching: Verbalize Understanding, Return Demonstration OT Short Term Goals Short Term Goals Time Frame: March 05, 2018 Eating(FIM): 4 Grooming(FIM): 4 Bathing(FIM): 3 Upper Body Dressing(FIM): 4 Lower Body Dressing(FIM): 3 Toileting(FIM): 3 Transfers (B,C,W/C) (FIM): 5 Toilet/Commode Transfer(FIM): 5 Additional Short Term Goals: 1-Demonstrate ADL Tasks, 2-Verbalize Understanding , 3-ImproveStrength/Colin 1=Demonstrate adherence to instructed precautions during ADL tasks. 2=Patient will verbalize/demonstrate understanding of assistive devices/ modifications for ADL. 3=Patient will improve strength/tolerance for activity to enable patient to perform ADL's. OT Magazine Supervisor Goals Magazine Supervisor Goals Time Frame: March 12, 2018 Eating (FIM): 6 Grooming(FIM): 5 Bathing(FIM): 4 Upper Body Dressing(FIM): 5 Lower Body Dressing(FIM): 4 Toileting(FIM): 5 Transfers (B,C,W/C) (FIM): 5 Toilet/Commode Transfer(FIM): 5 Shower Transfer(FIM): 4 Additional Goals: 1-Demonstrate ADL Tasks, 2-Verbalize Understanding, 3- ImproveStrength/Colin 1=Demonstrate adherence to instructed precautions during ADL tasks. 2=Patient will verbalize/demonstrate understanding of assistive devices/ modifications for ADL. 3=Patient will improve strength/tolerance for activity to enable patient to perform ADL's. OT Education/Plan Problem List/Assessment Assessment: Decreased Activ Tolerance, Decreased Safety Aware, Dependent Transfers, Impaired Cognition, Impaired Funct Balance, Impaired I ADL's, Impaired Self-Care Skills Discharge Recommendations Plan/Recommendations: Continue POC Therapy D/C Recommendations: 24 hr Supervision Comment Discharge destination and equipment needed to be determined. Treatment Plan/Plan of Care Treatment,Training & Education: Yes Patient would benefit from OT for education, treatment and training to promote independence in ADL's, mobility, safety and/or upper extremity function for ADL' s. Plan of Care: ADL Retraining, Functional Mobility, UE Funct Exercise/Act Treatment Duration: March 12, 2018 Frequency: 5 times per week Estimated Hrs Per Day: .25 hour per day Agreement: Yes Rehab Potential: Guarded Time/GCodes Start Time: 11:20 Stop Time: 11:40 Total Time Billed (hr/min): 20 Billed Treatment Time 1, MARY JANG OT February 26, 2018 13:32
[2018-02-26 16:00] VITALS: BP 165/93
[2018-02-26 20:00] VITALS: BP 141/86
[2018-02-27] VITALS: BP 122/81
[2018-02-27 04:00] VITALS: BP 147/91
[2018-02-27 06:51] LABS: HEMOGLOBIN 13.9 G/DL (13.3-17.7); MEAN PLATELET VOLUME 9.4 FL (7.4-10.4); RED BLOOD COUNT 3.73 10^6/uL (4.35-5.85); RED CELL DISTRIBUTION WIDTH 14.6 % (10.0-14.5); WHITE BLOOD COUNT 4.8 10^3/uL (4.3-11.0)
[2018-02-27 07:20] LABS: ALANINE AMINOTRANSFERASE 86 U/L (0-55); ALBUMIN 3.6 GM/DL (3.2-4.5); ALKALINE PHOSPHATASE 62 U/L (40-136); BILIRUBIN,TOTAL 1.2 MG/DL (0.1-1.0); BUN/CREATININE RATIO 25; CARBON DIOXIDE 26 MMOL/L (21-32); CHLORIDE 106 MMOL/L (98-107); CREATININE SERUM 0.68 MG/DL (0.60-1.30); GFR ESTIMATED > 60; GLUCOSE 91 MG/DL (70-105); POTASSIUM 3.6 MMOL/L (3.6-5.0); SODIUM 140 MMOL/L (135-145); TOTAL PROTEIN 6.5 GM/DL (6.4-8.2)
--- NOTE | 2018-02-27 07:37 | Progress Note (SOAP) ---
Subjective Time Seen by Provider: 07:35 Subjective/Events-last exam Patient alert today. Patient willing to get a assisted. Patient wants to do is have a beer. To be discharged today to [facility] assisted Objective Exam Vital Signs Date Time Temp Pulse Resp B/P (MAP) Pulse Ox O2 Delivery O2 Flow Rate FiO2 02/27/18 04:00 97.8 68 16 147/91 (109) 94 Room Air 02/27/18 01:00 72 02/27/18 00:00 97.9 74 16 122/81 (95) 97 Room Air 02/26/18 20:00 97.8 78 18 141/86 (104) 94 Room Air 02/26/18 19:00 75 02/26/18 16:00 95.3 81 16 165/93 (117) 98 Room Air 02/26/18 12:12 91 02/26/18 12:00 97.2 82 16 150/93 (112) 94 Room Air 02/26/18 09:38 97.9 80 16 166/96 (119) 92 Room Air I & O 02/27/18 07:00 Intake Total 1230 ml Output Total 100 ml Balance 1130 ml Capillary Refill : Less Than 3 Seconds General Appearance: No Apparent Distress, Thin HEENT: Normal ENT Inspection Neck: Normal Inspection Respiratory: Lungs Clear, No Accessory Muscle Use Results Lab Laboratory Tests 02/27/18 05:46 Laboratory Tests 02/27/18 05:46: White Blood Count 4.8, Red Blood Count 3.73L, Hemoglobin 13.9, Hematocrit 39L, Mean Corpuscular Volume 105H, Mean Corpuscular Hemoglobin 37H, Mean Corpuscular Hemoglobin Concent 36, Red Cell Distribution Width 14.6H, Platelet Count 94L, Mean Platelet Volume 9.4, Sodium Level 140, Potassium Level 3.6, Chloride Level 106, Carbon Dioxide Level 26, Anion Gap 8, Blood Urea Nitrogen 17, Creatinine 0.68, Estimat Glomerular Filtration Rate > 60, BUN/Creatinine Ratio 25, Glucose Level 91, Calcium Level 9.0, Total Bilirubin 1.2H, Aspartate Amino Transf (AST/ SGOT) 87H, Alanine Aminotransferase (ALT/SGPT) 86H, Alkaline Phosphatase 62, Total Protein 6.5, Albumin 3.6 Microbiology 02/24/18 Lice/Scabies Examination - Final, Complete Assessment/Plan Assessment/Plan Assess & Plan/Chief Complaint [place] acute alcoholism. Alcoholic level 280 Alcoholic withdrawal. Patient unable to take care of himself at home. Thrombocytopenia. . 02/27/18. Patient awake this morning. Patient willing to assisted of [facility]. Acute alcoholism. Patient needing physical therapy and occupational therapy of assisted. Discharge today Clinical Quality Measures DVT/VTE Risk/Contraindication: Risk Factor Score Per Nursin RFS Level Per Nursing on Admit: 2=Moderate ROLANDO ORELLANA DO February 27, 2018 07:37
--- NOTE | 2018-02-27 07:39 | Discharge Inst-Skilled Nursing ---
Discharge Inst-Skilled NF Patient Instructions Patient Problems: Alcoholism Consult/Follow Up/Orders Follow Up Appt.: One week Skilled NF Admit to: [facility] Certification (SNF) I certify that SNF services are required to be given on an inpatient basis because of the above named patient's need for prison care on a continuing basis for the conditions(s) for which he/she was receiving inpatient hospital services prior to his/her transfer to the SNF. Fdc Facility Order: [facility]-Evaluate & Treat, Physical Therapy-Evaluate & Treat Discharge Diet: No Restrictions New & Resume Previous Orders Tyrone Orellana February 27, 2018 07:38 TYRONE ORELLANA DO February 27, 2018 07:39
[2018-02-27 07:49] VITALS: BP 126/82
[2018-02-27] MEDS: KCL 10 MEQ TAB (MICRO K) PO SCH ×2 (08:40→12:39)
[2018-02-27 12:00] VITALS: BP 174/81
--- NOTE | 2018-02-27 14:50 | Occupational Ther Daily Note ---
OT Current Status-Daily Note Subjective Pt. is confused, asks for OT to put rail down. Appearance Pt. in bed. Agrees to work with OT. Mental Status/Objective Patient Orientation: Confused Functional [place] Measure 0=Not Assessed/NA 4=Minimal Assistance 1=Total Assistance 5=Supervision or Setup 2=Maximal Assistance 6=Modified [place] 3=Moderate Assistance 7=Complete [place] ADL-Treatment Toileting (FIM): 3 (Pt. requests to use urinal when sitting on side of bed. OT places it, and empties it.) Transfers (B, C, W/C) (FIM): 3 (Mod assist sup-sit, sit-stand.) Other Treatment Pt. requires constant cues and instructions to participate. Education OT Patient Education: Correct positioning, Modified ADL techniques, Progress toward Goal/Update tx plan, Purpose of tx/functional activities, Reviewed precautions, Rehab process, Transfer techniques Teaching Recipient: Patient Teaching Methods: Discussion Response to Teaching: Verbalize Understanding OT Short Term Goals Short Term Goals Time Frame: March 05, 2018 Eating(FIM): 4 Grooming(FIM): 4 Bathing(FIM): 3 Upper Body Dressing(FIM): 4 Lower Body Dressing(FIM): 3 Toileting(FIM): 3 Transfers (B,C,W/C) (FIM): 5 Toilet/Commode Transfer(FIM): 5 Additional Short Term Goals: 1-Demonstrate ADL Tasks, 2-Verbalize Understanding , 3-ImproveStrength/Colin 1=Demonstrate adherence to instructed precautions during ADL tasks. 2=Patient will verbalize/demonstrate understanding of assistive devices/ modifications for ADL. 3=Patient will improve strength/tolerance for activity to enable patient to perform ADL's. OT Rebrander Goals Rebrander Goals Time Frame: March 12, 2018 Eating (FIM): 6 Grooming(FIM): 5 Bathing(FIM): 4 Upper Body Dressing(FIM): 5 Lower Body Dressing(FIM): 4 Toileting(FIM): 5 Transfers (B,C,W/C) (FIM): 5 Toilet/Commode Transfer(FIM): 5 Shower Transfer(FIM): 4 Additional Goals: 1-Demonstrate ADL Tasks, 2-Verbalize Understanding, 3- ImproveStrength/Colin 1=Demonstrate adherence to instructed precautions during ADL tasks. 2=Patient will verbalize/demonstrate understanding of assistive devices/ modifications for ADL. 3=Patient will improve strength/tolerance for activity to enable patient to perform ADL's. OT Education/Plan Problem List/Assessment Assessment: Decreased Activ Tolerance, Decreased Safety Aware, Dependent Transfers, Impaired Bed Mobility, Impaired Cognition, Impaired Funct Balance, Impaired I ADL's, Impaired Self-Care Skills Discharge Recommendations Plan/Recommendations: Continue POC Therapy D/C Recommendations: 24 hr Supervision Treatment Plan/Plan of Care Treatment,Training & Education: Yes Patient would benefit from OT for education, treatment and training to promote independence in ADL's, mobility, safety and/or upper extremity function for ADL' s. Plan of Care: ADL Retraining, Functional Mobility, UE Funct Exercise/Act Treatment Duration: March 12, 2018 Frequency: 5 times per week Estimated Hrs Per Day: .25 hour per day Agreement: Yes Rehab Potential: Guarded Time/GCodes Start Time: 09:00 Stop Time: 09:15 Total Time Billed (hr/min): 15 Billed Treatment Time 1, ADL MARY GUERRA OT February 27, 2018 14:50
--- NOTE | 2018-03-02 07:07 | Discharge Summary ---
Diagnosis/Chief Complaint Date of Admission February 23, 2018 at 21:10 Date of Discharge February 27, 2018 at 16:12 Discharge Date: February 27, 2018 Discharge Diagnosis Acute alcoholic intoxication with delirium. Alcoholism Hypertension. Thrombocytopenia. Elevated liver enzymes. Serum alcohol level [id number]. Weakness. Inability to take care of himself. Discharge Summary Discharge Physical Examination Allergies: Coded Allergies: No Known Drug Allergies (Unverified , 09/05/16) Vitals & I&Os Vital Signs Date Time Temp Pulse Resp B/P (MAP) Pulse Ox O2 Delivery O2 Flow Rate FiO2 02/27/18 16:12 02/27/18 12:00 97.2 74 22 95 Room Air Hospital Course Patient improved. Patient going to correction of [facility] (last 24 hrs) Laboratory Tests 02/23/18 19:20: White Blood Count 3.9L, Red Blood Count 3.79L, Hemoglobin 14.0, Hematocrit 39L, Mean Corpuscular Volume 102H, Mean Corpuscular Hemoglobin 37H, Mean Corpuscular Hemoglobin Concent 36, Red Cell Distribution Width 14.6H, Platelet Count 96L, Mean Platelet Volume 9.0, Neutrophils (%) (Auto) 58, Lymphocytes (%) (Auto) 20, Monocytes (%) (Auto) 17H, Eosinophils (%) (Auto) 4, Basophils (%) (Auto) 1, Neutrophils # (Auto) 2.3, Lymphocytes # (Auto) 0.8L, Monocytes # (Auto) 0.7, Eosinophils # (Auto) 0.2, Basophils # (Auto) 0.0, Prothrombin Time 13.7, INR Comment 1.0, Activated Partial Thromboplast Time 29, Sodium Level 137, Potassium Level 3.7, Chloride Level 97L, Carbon Dioxide Level 19L, Anion Gap 21H , Blood Urea Nitrogen 9, Creatinine 0.73, Estimat Glomerular Filtration Rate > 60, BUN/Creatinine Ratio 12, Glucose Level 91, Calcium Level 8.7, Total Bilirubin 1.3H, Aspartate Amino Transf (AST/SGOT) 92H, Alanine Aminotransferase (ALT/SGPT) 65H, Alkaline Phosphatase 69, Total Protein 7.2, Albumin 4.5, Salicylates Level < 5.0L, Serum Alcohol 281H 02/23/18 20:41: Urine Color YELLOW, Urine Clarity CLEAR, Urine pH 5, Urine Specific [place] 1.010L, Urine Protein 1+H, Urine Glucose (UA) NEGATIVE, Urine Ketones 3+H, Urine Nitrite NEGATIVE, Urine Bilirubin NEGATIVE, Urine Urobilinogen NORMAL, Urine Leukocyte Esterase NEGATIVE, Urine RBC (Auto) 1+H, Urine RBC NONE, Urine WBC NONE, Urine Squamous Epithelial Cells 0-2, Urine Crystals NONE, Urine Bacteria NEGATIVE, Urine Casts NONE, Urine Mucus NEGATIVE, Urine Culture Indicated NO 02/25/18 06:15: White Blood Count 5.1, Red Blood Count 3.64L, Hemoglobin 13.5, Hematocrit 37L, Mean Corpuscular Volume 103H, Mean Corpuscular Hemoglobin 37H, Mean Corpuscular Hemoglobin Concent 36, Red Cell Distribution Width 14.3, Platelet Count 56L, Mean Platelet Volume 9.7, Neutrophils (%) (Auto) 82H, Lymphocytes (%) (Auto) 6L , Monocytes (%) (Auto) 12, Eosinophils (%) (Auto) 0, Basophils (%) (Auto) 0, Neutrophils # (Auto) 4.1, Lymphocytes # (Auto) 0.3L, Monocytes # (Auto) 0.6, Eosinophils # (Auto) 0.0, Basophils # (Auto) 0.0, Sodium Level 134L, Potassium Level 3.2L, Chloride Level 99, Carbon Dioxide Level 24, Anion Gap 11, Blood Urea Nitrogen 4L, Creatinine 0.71, Estimat Glomerular Filtration Rate > 60, BUN/ Creatinine Ratio 6, Glucose Level 161H, Calcium Level 8.5, Total Bilirubin 1.6H , Aspartate Amino Transf (AST/SGOT) 98H, Alanine Aminotransferase (ALT/SGPT) 61H , Alkaline Phosphatase 65, Total Protein 6.2L, Albumin 3.8 02/26/18 06:20: White Blood Count 5.0, Red Blood Count 3.92L, Hemoglobin 14.8, Hematocrit 40, Mean Corpuscular Volume 101H, Mean Corpuscular Hemoglobin 38H, Mean Corpuscular Hemoglobin Concent 37H, Red Cell Distribution Width 14.0, Platelet Count 62L, Mean Platelet Volume 9.8, Neutrophils (%) (Auto) 72, Lymphocytes (%) (Auto) 11L , Monocytes (%) (Auto) 14H, Eosinophils (%) (Auto) 3, Basophils (%) (Auto) 1, Neutrophils # (Auto) 3.6, Lymphocytes # (Auto) 0.5L, Monocytes # (Auto) 0.7, Eosinophils # (Auto) 0.2, Basophils # (Auto) 0.0, Sodium Level 139, Potassium Level 3.4L, Chloride Level 104, Carbon Dioxide Level 26, Anion Gap 9, Blood Urea Nitrogen 8, Creatinine 0.66, Estimat Glomerular Filtration Rate > 60, BUN/ Creatinine Ratio 12, Glucose Level 93, Calcium Level 9.1, Total Bilirubin 1.4H, Aspartate Amino Transf (AST/SGOT) 147H, Alanine Aminotransferase (ALT/SGPT) 107H , Alkaline Phosphatase 65, Total Protein 6.9, Albumin 4.0 02/27/18 05:46: White Blood Count 4.8, Red Blood Count 3.73L, Hemoglobin 13.9, Hematocrit 39L, Mean Corpuscular Volume 105H, Mean Corpuscular Hemoglobin 37H, Mean Corpuscular Hemoglobin Concent 36, Red Cell Distribution Width 14.6H, Platelet Count 94L, Mean Platelet Volume 9.4, Sodium Level 140, Potassium Level 3.6, Chloride Level 106, Carbon Dioxide Level 26, Anion Gap 8, Blood Urea Nitrogen 17, Creatinine 0.68, Estimat Glomerular Filtration Rate > 60, BUN/Creatinine Ratio 25, Glucose Level 91, Calcium Level 9.0, Total Bilirubin 1.2H, Aspartate Amino Transf (AST/ SGOT) 87H, Alanine Aminotransferase (ALT/SGPT) 86H, Alkaline Phosphatase 62, Total Protein 6.5, Albumin 3.6 Microbiology 02/24/18 Lice/Scabies Examination - Final, Complete Laboratory Tests 02/23/18 19:20 02/25/18 06:15 02/26/18 06:20 02/27/18 05:46 Pending Labs Microbiology Date/Time Source Procedure Growth Status 02/24/18 09:00 Skin Lice/Scabies Examination - Final Complete Laboratory Tests 02/23/18 19:20: White Blood Count 3.9, Red Blood Count 3.79, Hemoglobin 14.0, Hematocrit 39, Mean Corpuscular Volume 102, Mean Corpuscular Hemoglobin 37, Mean Corpuscular Hemoglobin Concent 36, Red Cell Distribution Width 14.6, Platelet Count 96, Mean Platelet Volume 9.0, Neutrophils (%) (Auto) 58, Lymphocytes (%) (Auto) 20, Monocytes (%) (Auto) 17, Eosinophils (%) (Auto) 4, Basophils (%) (Auto) 1, Neutrophils # (Auto) 2.3, Lymphocytes # (Auto) 0.8, Monocytes # (Auto) 0.7, Eosinophils # (Auto) 0.2, Basophils # (Auto) 0.0, Prothrombin Time 13.7, INR Comment 1.0, Activated Partial Thromboplast Time 29, Sodium Level 137, Potassium Level 3.7, Chloride Level 97, Carbon Dioxide Level 19, Anion Gap 21, Blood Urea Nitrogen 9, Creatinine 0.73, Estimat Glomerular Filtration Rate > 60 , BUN/Creatinine Ratio 12, Glucose Level 91, Calcium Level 8.7, Total Bilirubin 1.3, Aspartate Amino Transf (AST/SGOT) 92, Alanine Aminotransferase (ALT/SGPT) 65, Alkaline Phosphatase 69, Total Protein 7.2, Albumin 4.5, Salicylates Level < 5.0, Serum Alcohol 281 02/23/18 20:41: Urine Color YELLOW, Urine Clarity CLEAR, Urine pH 5, Urine Specific [place] 1.010, Urine Protein 1+, Urine Glucose (UA) NEGATIVE, Urine Ketones 3+, Urine Nitrite NEGATIVE, Urine Bilirubin NEGATIVE, Urine Urobilinogen NORMAL, Urine Leukocyte Esterase NEGATIVE, Urine RBC (Auto) 1+, Urine RBC NONE, Urine WBC NONE , Urine Squamous Epithelial Cells 0-2, Urine Crystals NONE, Urine Bacteria NEGATIVE, Urine Casts NONE, Urine Mucus NEGATIVE, Urine Culture Indicated NO 02/25/18 06:15: White Blood Count 5.1, Red Blood Count 3.64, Hemoglobin 13.5, Hematocrit 37, Mean Corpuscular Volume 103, Mean Corpuscular Hemoglobin 37, Mean Corpuscular Hemoglobin Concent 36, Red Cell Distribution Width 14.3, Platelet Count 56, Mean Platelet Volume 9.7, Neutrophils (%) (Auto) 82, Lymphocytes (%) (Auto) 6, Monocytes (%) (Auto) 12, Eosinophils (%) (Auto) 0, Basophils (%) (Auto) 0, Neutrophils # (Auto) 4.1, Lymphocytes # (Auto) 0.3, Monocytes # (Auto) 0.6, Eosinophils # (Auto) 0.0, Basophils # (Auto) 0.0, Sodium Level 134, Potassium Level 3.2, Chloride Level 99, Carbon Dioxide Level 24, Anion Gap 11, Blood Urea Nitrogen 4, Creatinine 0.71, Estimat Glomerular Filtration Rate > 60, BUN/ Creatinine Ratio 6, Glucose Level 161, Calcium Level 8.5, Total Bilirubin 1.6, Aspartate Amino Transf (AST/SGOT) 98, Alanine Aminotransferase (ALT/SGPT) 61, Alkaline Phosphatase 65, Total Protein 6.2, Albumin 3.8 02/26/18 06:20: White Blood Count 5.0, Red Blood Count 3.92, Hemoglobin 14.8, Hematocrit 40, Mean Corpuscular Volume 101, Mean Corpuscular Hemoglobin 38, Mean Corpuscular Hemoglobin Concent 37, Red Cell Distribution Width 14.0, Platelet Count 62, Mean Platelet Volume 9.8, Neutrophils (%) (Auto) 72, Lymphocytes (%) (Auto) 11, Monocytes (%) (Auto) 14, Eosinophils (%) (Auto) 3, Basophils (%) (Auto) 1, Neutrophils # (Auto) 3.6, Lymphocytes # (Auto) 0.5, Monocytes # (Auto) 0.7, Eosinophils # (Auto) 0.2, Basophils # (Auto) 0.0, Sodium Level 139, Potassium Level 3.4, Chloride Level 104, Carbon Dioxide Level 26, Anion Gap 9, Blood Urea Nitrogen 8, Creatinine 0.66, Estimat Glomerular Filtration Rate > 60, BUN/ Creatinine Ratio 12, Glucose Level 93, Calcium Level 9.1, Total Bilirubin 1.4, Aspartate Amino Transf (AST/SGOT) 147, Alanine Aminotransferase (ALT/SGPT) 107, Alkaline Phosphatase 65, Total Protein 6.9, Albumin 4.0 02/27/18 05:46: White Blood Count 4.8, Red Blood Count 3.73, Hemoglobin 13.9, Hematocrit 39, Mean Corpuscular Volume 105, Mean Corpuscular Hemoglobin 37, Mean Corpuscular Hemoglobin Concent 36, Red Cell Distribution Width 14.6, Platelet Count 94, Mean Platelet Volume 9.4, Sodium Level 140, Potassium Level 3.6, Chloride Level 106, Carbon Dioxide Level 26, Anion Gap 8, Blood Urea Nitrogen 17, Creatinine 0.68, Estimat Glomerular Filtration Rate > 60, BUN/Creatinine Ratio 25, Glucose Level 91, Calcium Level 9.0, Total Bilirubin 1.2, Aspartate Amino Transf (AST/ SGOT) 87, Alanine Aminotransferase (ALT/SGPT) 86, Alkaline Phosphatase 62, Total Protein 6.5, Albumin 3.6 Discharge Home Medications: Active Scripts Active No Active Prescriptions or Reported Medications Instructions to patient/family Please see electronic discharge instructions given to patient. Clinical Quality Measures DVT/VTE Risk/Contraindication: Risk Factor Score Per Nursin RFS Level Per Nursing on Admit: 2=Moderate ROLANDO ORELLANA DO March 02, 2018 07:07
== END 2018-02-27 16:12 | DRG 897 ==
LOC: ER 19:19 → EDUNIT# 19:19 → 4TH 21:10
PROVIDERS: ADMIT Internal Medicine; ATTEND Family Medicine
DX: F10.231 Alcohol dependence with withdrawal delirium (principal); Y90.8 Blood alcohol level of 240 mg/100 ml or more; R41.89 Other symptoms and signs involving cognitive functions and awareness; R74.8 Abnormal levels of other serum enzymes; R29.6 Repeated falls; F17.210 Nicotine dependence, cigarettes, uncomplicated; D69.6 Thrombocytopenia, unspecified; F41.9 Anxiety disorder, unspecified; I10 Essential (primary) hypertension; K21.9 Gastro-esophageal reflux disease without esophagitis; R53.1 Weakness; K64.9 Unspecified hemorrhoids; Z74.2 Need for assistance at home and no other household member able to render care
CPT/HCPCS: 36415; 70450; 71045; 72125; 80053; 80320; 80329; 81000; 85025; 85027; 85610; 85730; 87220; 93005

== ENCOUNTER → 2022-07-14 | Outpatient (CLI) | payer MEDICAID, MEDICARE, OTHER ==
[~2022-07-14] MED LIST changes: -LISI-552 PO; +LISI20TA26 PO
--- NOTE | 2022-07-14 12:08 | Diagnostic Imaging Report ---
PROCEDURE: CT abdomen and pelvis without contrast. TECHNIQUE: Multiple contiguous axial images were obtained through the abdomen and pelvis without the use of intravenous contrast. Auto Exposure Controls were utilized during the CT exam to meet ALARA standards for radiation dose reduction. INDICATION: Prostate carcinoma. No prior studies are available for comparison. Lung bases are clear. The liver and gallbladder are unremarkable. No biliary duct dilatation is seen. The pancreas and spleen are unremarkable. No adrenal mass is detected. No renal calculi or hydronephrosis is detected. Aorta is calcified but nonaneurysmal. No central retroperitoneal or mesenteric lymphadenopathy is seen. The small and large bowel loops are normal caliber. There is no obstruction. There is diverticulosis of the sigmoid but no evidence of acute diverticulitis. No iliac or inguinal lymphadenopathy is detected. Bladder is decompressed. Prostate is mildly enlarged. There is a fat-containing left inguinal hernia. No free fluid or fluid collection is seen. No osteoblastic lesions are seen. IMPRESSION: 1. No evidence of abdominal or pelvic lymphadenopathy or metastatic disease. 2. Uncomplicated diverticulosis. 3. Prostatomegaly. 4. Fat-containing left inguinal hernia. Dictated by: Dictated on workstation # [id number]
--- NOTE | 2022-07-14 16:47 | Diagnostic Imaging Report ---
INDICATION: Prostate carcinoma. Patient was administered 27.0 mCi technetium 99m MDP intravenously and whole-body imaging was performed after a three-hour delay. No prior bone scans are available for comparison. There is normal uptake of activity by the axial and appendicular skeleton. There is uptake by the kidneys with excretion into the urinary bladder. There is some mild uptake mid lumbar spine which likely owing to degenerative disc disease. No other suspicious foci are seen. There is no evidence of osseous metastatic disease. IMPRESSION: No scintigraphic evidence of osseous metastatic disease. Dictated by: Dictated on workstation # [id number]
== END ==
LOC: RAD 11:00
PROVIDERS: ATTEND Urology
DX: K57.30 Diverticulosis of large intestine without perforation or abscess without bleeding (principal); K40.90 Unilateral inguinal hernia, without obstruction or gangrene, not specified as recurrent; C61 Malignant neoplasm of prostate
CPT/HCPCS: 74176; 78306; A9503

== ENCOUNTER 2022-08-09 15:36 | Outpatient (RCR) | payer MEDICARE, MEDICAID | END 2022-08-22 | disposition home or self-care (01) | LOC: ONC 15:36 | PROVIDERS: ATTEND Internal Medicine Hematology & Oncology | DX: C61 Malignant neoplasm of prostate (principal); I10 Essential (primary) hypertension; K21.9 Gastro-esophageal reflux disease without esophagitis | CPT/HCPCS: 99204; 99205 ==